=== PATIENT | male | born 1995 | race Caucasian/White ===

== ENCOUNTER 2022-06-29 09:04 | Inpatient (IN) | payer BC ==
[~2022-06-29] VITALS: Ht 172.7 cm; Wt 81.6 kg
[2022-06-29 09:43] LABS: HEMATOCRIT 43.6 % (36.7-47.1); MEAN CORPUSCULAR HEMOGLOBIN 30.1 uug (23.8-33.4); MEAN CORPUSCULAR VOLUME 86.1 fL (73.0-96.2); PLATELET COUNT (AUTO) 260 K/uL (152-348)
[2022-06-29] MEDS ORDERED: KETOROLAC TROMETHAMINE 15 MG INJ ONE (09:43)
[2022-06-29] MEDS ORDERED: KETOROLAC TROMETHAMINE 15 MG INJ IVP ONE (09:45)
[2022-06-29 09:54] LABS: CARBON DIOXIDE 29 mmol/L (21-32); CHLORIDE 101 mmol/L (98-107); CREATININE 1.3 mg/dL (0.6-1.3); GLUCOSE 85 mg/dL (74-106); POTASSIUM 3.8 mmol/L (3.5-5.1); UREA NITROGEN, BLOOD 16 mg/dL (7-18)
[2022-06-29 10:07] LABS: ALANINE AMINOTRANSFERASE 20 U/L (16-63); ALKALINE PHOSPHATASE 65 U/L (50-136); ASPARTATE AMINOTRANSFERASE 15 U/L (15-37); BILIRUBIN,DIRECT 0.2 mg/dL (0.0-0.2); BILIRUBIN,TOTAL 1.1 mg/dL (0.2-1.0); TOTAL PROTEIN, SERUM 7.9 g/dL (6.4-8.2)
[2022-06-29] MEDS ORDERED: MIDAZOLAM HCL 2 MG/2 ML VIAL IV ONE (10:15)
[2022-06-29] MEDS ORDERED: MIDAZOLAM HCL 2 MG/2 ML VIAL ONE (10:25)
[2022-06-29] MEDS ORDERED: IV NORMAL SALINE 250 ML IV ONE (11:22)
[2022-06-29] MEDS ORDERED: SWABABLE VALVE TRANSFER SET EA MC ONE (11:22)
[2022-06-29] MEDS ORDERED: IOHEXOL 350 100 ML INFUS..BTL ONE (11:22)
[2022-06-29] MEDS ORDERED: ENOXAPARIN SODIUM 80 MG/0.8 ML DISP.SYRIN SQ ONE ×2 (12:45→13:08)
[2022-06-29] MEDS ORDERED: ENOXAPARIN SODIUM 60 MG/0.6 ML DISP.SYRIN SQ ONE (13:06)
[2022-06-29] MEDS ORDERED: LIDOCAINE-MPF 2% 5 ML VIAL ONE (14:10)
[2022-06-29] MEDS ORDERED: PROPOFOL 200 MG/20 ML BOTTLE ONE (14:10)
[2022-06-29] MEDS ORDERED: ONDANSETRON 4 MG/2 ML VIAL IV PRN (20:00)
[2022-06-29] MEDS ORDERED: ACETAMINOPHEN 325 MG TABLET PO PRN (20:00)
[2022-06-29] MEDS: HYDROCODONE/APAP 5-325MG TABLET PO PRN (20:20)
[2022-06-29] MEDS ORDERED: MORPHINE SULFATE 2 MG/1 ML DISP.SYRIN IV PRN (22:00)
[2022-06-29] MEDS ORDERED: MAG HYDROX/AL HYDROX/SIMETH 30 ML LIQUID UDC PO PRN (22:00)
[2022-06-29 22:30] VITALS: BP 105/60
[2022-06-30 04:00] VITALS: BP 92/44
[2022-06-30] MEDS: PANTOPRAZOLE SODIUM 40 MG TABLET.DR PO SCH (06:34)
[2022-06-30 06:48] LABS: HEMATOCRIT 41.3 % (36.7-47.1); MEAN CORPUSCULAR HEMOGLOBIN 30.3 uug (23.8-33.4); MEAN CORPUSCULAR VOLUME 88.5 fL (73.0-96.2); PLATELET COUNT (AUTO) 246 K/uL (152-348)
[2022-06-30 07:10] LABS: BILIRUBIN,TOTAL 0.9 mg/dL (0.2-1.0); CREATININE 1.1 mg/dL (0.6-1.3); MAGNESIUM 2.1 mg/dL (1.8-2.4); PHOSPHOROUS 4.5 mg/dL (2.5-4.9); POTASSIUM 3.6 mmol/L (3.5-5.1)
[2022-06-30 07:14] LABS: THYROID STIMULATING HORMONE 1.626 mIU/mL (0.358-3.740)
[2022-06-30] MEDS ORDERED: ASPIRIN 81 MG TAB.CHEW PO SCH (09:00)
[2022-06-30 12:08] VITALS: BP 94/48
[2022-06-30] MEDS: HYDROCODONE/APAP 5-325MG TABLET PO PRN (16:55)
[2022-06-30] MEDS ORDERED: POTASSIUM CHLORIDE 20 MEQ in IV D5/ 0.9% NACL 1,000 ML IV PRN (19:00)
[2022-06-30] MEDS: IV DEXTROSE 5%-0.9%NS+20MeqKCL 1,000 ML IV PRN (20:06)
[2022-06-30 20:15] VITALS: BP 104/58
[2022-07-01 00:19] VITALS: BP 100/46
[2022-07-01 04:20] VITALS: BP 100/70
[2022-07-01] MEDS: PANTOPRAZOLE SODIUM 40 MG TABLET.DR PO SCH (06:31)
[2022-07-01 12:03] VITALS: BP 106/57
[2022-07-01 16:34] VITALS: BP 96/49
[2022-07-01] MEDS ORDERED: MIDAZOLAM HCL 2 MG/2 ML VIAL ONE (17:24)
[2022-07-01] MEDS: IV DEXTROSE 5%-0.9%NS+20MeqKCL 1,000 ML IV PRN (19:06)
[2022-07-01] MEDS ORDERED: PANT40TA49 PO (19:59)
[2022-07-01] MEDS ORDERED: SUCR1ORA PO (19:59)
[2022-07-01 20:00] VITALS: BP 111/62
[2022-07-01] MEDS ORDERED: SUCRALFATE 1 G/10 ML LIQUID UDC PO SCH (21:00)
[2022-07-01] MEDS ORDERED: VANCOMYCIN IV 1,750 MG in IV DEXTROSE 5% 500 ML IV ONE (21:00)
== END 2022-07-01 20:30 | disposition home or self-care (01) | DRG 392 ==
LOC: ER 09:06 → TELE3 21:23 → MEDSURG3 07-01 11:35
PROVIDERS: ADMIT Internal Medicine; ATTEND Internal Medicine
PROC: 0DB68ZX Excision of Stomach, Via Natural or Artificial Opening Endoscopic, Diagnostic (ICD-10-PCS; principal; 2022-07-01)
DX: K29.70 Gastritis, unspecified, without bleeding (principal); E78.5 Hyperlipidemia, unspecified; Z20.822 Contact with and (suspected) exposure to COVID-19; K20.90 Esophagitis, unspecified without bleeding; R03.1 Nonspecific low blood-pressure reading
CPT/HCPCS: 36415; 71045; 71275; 83690; 83735; 84100; 84443; 84484; 85025; 88313-TC; 88342; 93005; A4663; G0378; J1650; J1885; J2250; J2270; J3370; J3490; J7060; Q9967